=== PATIENT | male | born 1985 | race Caucasian/White ===

== ENCOUNTER 2018-03-01 19:48 | Emergency (ER) | payer OTHER ==
--- NOTE | 2018-03-01 20:25 | ED UPPER/LOWER EXTREMITY COMPL ---
History of Present Illness General Chief Complaint: Lower Extremity Problems Stated Complaint: KNEE PAIN Source: patient Exam Limitations: no limitations Vital Signs & Intake/Output Vital Signs & Intake/Output Vital Signs Date Time Temp Pulse Resp B/P B/P Pulse O2 O2 Flow FiO2 Mean Ox Delivery Rate 03/01 2016 Room Air 03/01 2002 97.0 73 22 153/95 99 Allergies Coded Allergies: NO KNOWN ALLERGIES (05/02/13) Reconcile Medications No Known Home Medications Triage Note: PER PT SWELLING TO L KNEE X 2 WEEKS NO KNOWN INJURY LAST NIGHT USED HEAT AND MASSAGE PACKS AND TODAY IT IS MORE SWOLLEN Triage Nurses Notes Reviewed? yes Onset: Abrupt Duration: day(s):, constant, getting worse Timing: recent history Pain/Injury Location: Left: Leg, Knee. Method of Injury: unknown HPI: 32-year-old male emergency room with complaints of left knee pain. He reports that he's had some pain and swelling going on for a few days now. He reports that he was massaging the back of his knee other day because the primary spot of the pain he feels is behind his knee and he reports that today he woke up and his entire leg was swollen. He denies any recent trauma. He is very active and plays in multiple basketball leagues. He denies any recent trauma that he can recall. (Dat Ledezma) Past History Travel History Traveled to [place] past 21 day No Medical History Any Pertinent Medical History? see below for history Neurological: NONE Cardiovascular: NONE Respiratory: NONE Gastrointestinal: NONE Hepatic: NONE Renal: NONE Musculoskeletal: NONE Psychiatric: NONE Endocrine: NONE Blood Disorders: NONE Surgical History Surgical History: non-contributory Psychosocial History What is your primary language Kuwaiti Tobacco Use: Never used Family History Hx Contributory? No (Dat Ledezma) Review of Systems Review of Systems Constitutional: Reports: no symptoms. EENTM: Reports: no symptoms. Respiratory: Reports: no symptoms. Cardiovascular: Reports: no symptoms. Gastrointestinal/Abdominal: Reports: no symptoms. Genitourinary: Reports: no symptoms. Musculoskeletal: Reports: see HPI. Skin: Reports: no symptoms. Neurological/Psychological: Reports: no symptoms. Hematologic/Endocrine: Reports: no symptoms. Immunological: Reports: no symptoms. All Other Systems: Reviewed and Negative (Dat Ledezma) Physical Exam Physical Exam General Appearance: well developed/nourished, mild distress Head: atraumatic Eyes: Bilateral: normal appearance. Ears, Nose, Throat: normal ENT inspection, hearing grossly normal Neck: normal inspection Cardiovascular/Respiratory: no respiratory distress Back: normal inspection Leg Left: 1+ edema lower leg Knee Left: joint effusion, soft tissue tenderness, limited range of motion, laxity with MCL, positive McBurney's test, pain in popliteal fossa, Neurologic/Tendon: normal sensation, normal motor functions, normal tendon functions, responds to pain, no evidence tendon injury, no pulse deficit Skin: intact, normal color, warm/dry (Kirk FRIAS,Dat) Progress Differential Diagnosis: contusion, dislocation, DVT, fracture, gout, septic arthritis, sprain, tendon injury Plan of Care: Orders Procedure Date/time Status US-UNILATERAL VENOUS DOPPLER 03/01 2024 Active Diagnostic Imaging: Viewed by Me: Radiology Read, Ultrasound. Discussed w/RAD: Radiology Read, Ultrasound. Radiology Impression: PATIENT: CHULA WHITLEY PRESENT AGE: 32 PATIENT ACCOUNT NO: [id number] : 84 LOCATION: [facility] ORDERING PHYSICIAN: Dat FRIAS SERVICE DATE: 03/01/18 EXAM TYPE: US - US -UNILATERAL VENOUS DOPPLER EXAMINATION: US TRIPLEX LOWER EXTREMITY, LEFT CLINICAL INFORMATION: Edema. Pain. Swelling. Leg tenderness. COMPARISON: None TECHNIQUE: Color-flow triplex imaging with spectral analysis and compression Doppler were performed on the lower extremity. FINDINGS: Respiratory variation, normal compression and augmented flow are noted throughout the lower extremity. The visualized common femoral vein, superficial femoral vein, profunda femoral vein, popliteal vein and midcalf peroneal and posterior tibial venous segments show no evidence of deep venous thrombosis. There are several collections of anechoic fluid in the popliteal fossa extending into the upper calf. 3 separate fluid collections which cannot be clearly connected, are present. There is a 2.9 x 0.8 x 1.2 cm collection. There is a 2.3 x 1.1 x 1.2 cm collection. There is a 2.2 x 0.7 x 1.8 cm collection. IMPRESSION: 1. Normal triplex scan without evidence of deep venous thrombosis involving the lower extremity. 2. Fluid collections at the popliteal fossa. DICTATED BY: Davian Moore MD DATE/TIME DICTATED:03/01/182130 [employer] ARCHITECT:RAYMOND DATE/TIME TRANSCRIBED:2130 CONFIDENTIAL, DO NOT COPY WITHOUT APPROPRIATE AUTHORIZATION. < Electronically signed in Other Vendor System> SIGNED BY: Davian Moore MD [id number], PATIENT: CHULA WHITLEY PRESENT AGE: 32 PATIENT ACCOUNT NO: [id number] : 84 LOCATION: [facility] ORDERING PHYSICIAN: Dat FRIAS SERVICE DATE: 03/01/18 EXAM TYPE: RAD - XRY-KNEE COMPLETE LEFT EXAMINATION: XR KNEE, LEFT CLINICAL INFORMATION: Knee pain and swelling. COMPARISON: None TECHNIQUE: Four views of the left knee. FINDINGS: No acute fracture or dislocation is seen. The articular surfaces are normal. There is a small suprapatellar joint effusion. The soft tissues are otherwise unremarkable. IMPRESSION: No acute osseous abnormality. Small suprapatellar joint effusion. DICTATED BY: Austyn Thomas MD DATE/TIME DICTATED:03/01/182054 [employer] ARCHITECT:RAYMOND DATE/TIME TRANSCRIBED:03/01/182054 CONFIDENTIAL, DO NOT COPY WITHOUT APPROPRIATE AUTHORIZATION. <Electronically signed in Other Vendor System> SIGNED BY: Austyn Thomas MD 03/01/182058 (Dat Ledezma) Departure Departure Disposition: HOME OR SELF CARE Condition: Stable Clinical Impression Primary Impression: Popliteal cyst Referrals: Ana LUNDY,Sony Welsh (PCP/Family) Additional Instructions: Follow-up with orthopedic doctor provided. Ice. Rest. Compression. Ibuprofen. You will likely require an MRI of the knee. Return if any other concerns. Please go over all results of today's visit with your primary care doctor. Contact your primary care doctor to let them know you were here in the emergency room. There may be nonspecific findings which may not be related to your visit today here in the emergency room but may require further evaluation and chronic monitoring by your primary care doctor. If you had a laceration today the chance of foreign body always remains. You should follow-up with your primary care doctor for recheck in 3-5 days for a wound check. If you had an x-ray done there is a chance that a fracture could have been missed on initial read and you should follow-up with your primary care doctor for repeat x-rays if symptoms persist. If your blood pressure was elevated here in the emergency room please have rechecked by tiffour primary care doctor within the next 48. If you were prescribed a narcotic here in the emergency room or any type of controlled substances you're not allowed to drive while taking this medication or operate any type of heavy machinery. Narcotics can make you feel lightheaded dizziness nausea and can cause constipation. You may need to hand picker a stool softener. Thank you for choosing [facility] emergency room. Please return to the emergency room immediately if you have any other concerns worsening of symptoms. Departure Forms: Customer Survey General Discharge Information Prescriptions: Current Visit Scripts No Known Home Medications Comments 03/01/18 pt referred to orthopedic doctor. Return if any other concerns worsening symptoms. Patient understands and agrees with plan of care. all QUESTIONS were addressed and answered. No signs of infection. (Kirk FRIAS,Dat) PA/RN FAMILY Co-Sign Statement Statement: ED Attending supervision documentation- I saw and evaluated the patient. I have also reviewed all the pertinent lab results and diagnostic results. I agree with the findings and the plan of care as documented in the PA's/RN FAMILY's documentation. x I have reviewed the ED Record and agree with the PA's/RN FAMILY's documentation. [] Additions or exceptions (if any) to the PAs/RN FAMILY's note and plan are summarized below: [] (Rena LUNDY,Nav)
--- NOTE | 2018-03-01 20:59 | RADIOLOGY REPORT ---
EXAMINATION: XR KNEE, LEFT CLINICAL INFORMATION: Knee pain and swelling. COMPARISON: None TECHNIQUE: Four views of the left knee. FINDINGS: No acute fracture or dislocation is seen. The articular surfaces are normal. There is a small suprapatellar joint effusion. The soft tissues are otherwise unremarkable. IMPRESSION: No acute osseous abnormality. Small suprapatellar joint effusion.
--- NOTE | 2018-03-01 21:37 | ULTRASOUND REPORT ---
EXAMINATION: US TRIPLEX LOWER EXTREMITY, LEFT CLINICAL INFORMATION: Edema. Pain. Swelling. Leg tenderness. COMPARISON: None TECHNIQUE: Color-flow triplex imaging with spectral analysis and compression Doppler were performed on the lower extremity. FINDINGS: Respiratory variation, normal compression and augmented flow are noted throughout the lower extremity. The visualized common femoral vein, superficial femoral vein, profunda femoral vein, popliteal vein and midcalf peroneal and posterior tibial venous segments show no evidence of deep venous thrombosis. There are several collections of anechoic fluid in the popliteal fossa extending into the upper calf. 3 separate fluid collections which cannot be clearly connected, are present. There is a 2.9 x 0.8 x 1.2 cm collection. There is a 2.3 x 1.1 x 1.2 cm collection. There is a 2.2 x 0.7 x 1.8 cm collection. IMPRESSION: 1. Normal triplex scan without evidence of deep venous thrombosis involving the lower extremity. 2. Fluid collections at the popliteal fossa.
[2018-03-01 22:05] VITALS: BP 136/57
== END 2018-03-01 22:03 ==
LOC: ERH 19:48
DX: M71.22 Synovial cyst of popliteal space [Baker], left knee (principal)
CPT/HCPCS: 73562-LT